=== PATIENT | male | born 1970 | race Caucasian/White ===

== ENCOUNTER 2016-04-10 18:38 | Emergency (ER) | payer SELFPAY ==
--- NOTE | 2016-04-10 19:06 | ER Document Report ---
ED Medical Screen (RME) - General Stated Complaint: BACK PAIN Mode of Arrival: Ambulatory Information source: Patient Notes: Patient complains of generalized body aches for the past several months. Patient's encouraged him to come today. Patient complains of numbness to left third and fourth fingers off and on. Patient reports lower abdominal burning. Patient does report nausea but denies any vomiting. hx: Epilepsy, [place] I have greeted and performed a rapid initial assessment of this patient. A comprehensive ED assessment and evaluation of the patient, analysis of test results and completion of the medical decision making process will be conducted by additional ED providers. TRAVEL OUTSIDE OF THE [place] IN LAST 30 DAYS: No - Related Data Allergies/Adverse Reactions: Penicillins Allergy (Verified 11/23/15 21:17) Past Medical History - Past Medical History Cardiac Medical History: Reports: Hx Heart Attack Neurological Medical History: Reports: Hx Seizures Past Surgical History: Reports: Hx Appendectomy, Hx Orthopedic Surgery - right knee Physical Exam - Vital signs Vitals: Temp Pulse Resp BP Pulse Ox 98.2 F 79 20 126/79 H 96 04/10/16 18:45 04/10/16 18:45 04/10/16 18:45 04/10/16 18:45 04/10/16 18:45 - General General appearance: Appears well, Alert In distress: None Course - Vital Signs Vital signs: Temp Pulse Resp BP Pulse Ox 98.2 F 79 20 126/79 H 96 04/10/16 18:45 04/10/16 18:45 04/10/16 18:45 04/10/16 18:45 04/10/16 18:45
[2016-04-10 20:44] LABS: ABSOLUTE BASOPHILS # (AUTO) 0.1 10^3/uL (0.0-0.2); ABSOLUTE EOSINOPHILS # (AUTO) 0.1 10^3/uL (0.0-0.6); ABSOLUTE LYMPHOCYTES (AUTO) 2.8 10^3/uL (0.5-4.7); ABSOLUTE MONOCYTES (AUTO) 0.6 10^3/uL (0.1-1.4); ABSOLUTE NEUT (AUTO) 5.9 10^3/uL (1.7-8.2); BASOPHILS % (AUTO) 0.5 % (0-2); EOSINOPHILS % (AUTO) 1.1 % (0-6); HEMOGLOBIN 14.8 g/dL (13.5-17.0); HGB HCT DIFFERENCE -0.6; LYMPHOCYTES % (AUTO) 29.7 % (13-45); MEAN CORPUSCULAR HEMOGLOBIN 29.6 pg (27.0-33.4); MEAN CORPUSCULAR HGB CONC 32.9 g/dL (32.0-36.0); MEAN CORPUSCULAR VOLUME 90 fl (80-97); MONOCYTES % (AUTO) 6.7 % (3-13); RED CELL DISTRIBUTION WIDTH 13.7 % (11.5-14.0); WHITE BLOOD COUNT 9.5 10^3/uL (4.0-10.5)
[2016-04-10 21:04] LABS: ALANINE AMINOTRANSFERASE 33 U/L (21-72); ALBUMIN 3.8 g/dL (3.5-5.0); ALKALINE PHOSPHATASE 95 U/L (38-126); ANION GAP 10 (5-19); ASPARTATE AMINO TRANSFERASE 27 U/L (17-59); BILIRUBIN,TOTAL 0.3 mg/dL (0.2-1.3); BLOOD UREA NITROGEN 16 mg/dL (7-20); CALCIUM 9.4 mg/dL (8.4-10.2); CARBON DIOXIDE 29 mmol/L (22-30); CHLORIDE 103 mmol/L (98-107); CREATININE RESULT 1.03 mg/dL (0.52-1.25); GLUCOSE 89 mg/dL (75-110); LIPASE 233.6 U/L (23-300); POTASSIUM 3.9 mmol/L (3.6-5.0); SODIUM 141.7 mmol/L (137-145); TOTAL PROTEIN 6.1 g/dL (6.3-8.2)
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
[2016-04-10 22:08] LABS: APPEARANCE,URINE CLEAR; BILIRUBIN,URINE NEGATIVE (NEGATIVE); GLUCOSE, URINE NEGATIVE (NEGATIVE); KETONES,URINE TRACE mg/dL (NEGATIVE); LEUKOCYTE ESTERASE,URINE NEGATIVE (NEGATIVE); NITRITE,URINE NEGATIVE (NEGATIVE); PROTEIN,URINE NEGATIVE (NEGATIVE); UROBILINOGEN,URINE NEGATIVE mg/dL (<2.0)
[2016-04-10 22:22] LABS: URINE BARBITURATES SCREEN NEGATIVE; URINE METHADONE SCREEN NEGATIVE; URINE PHENCYCLIDINE SCREEN NEGATIVE
[2016-04-10 22:41] VITALS: BP 132/84
== END 2016-04-10 22:43 | disposition home or self-care (01) ==
LOC: ER 18:38
DX: M54.5 Low back pain (principal); R10.9 Unspecified abdominal pain; M54.9 Dorsalgia, unspecified; G40.909 Epilepsy, unspecified, not intractable, without status epilepticus; I25.2 Old myocardial infarction; F17.210 Nicotine dependence, cigarettes, uncomplicated
CPT/HCPCS: 36415; 80053; 80307; 81001; 83690; 85025; 99284

== ENCOUNTER 2016-06-09 12:54 | Emergency (ER) | payer SELFPAY ==
[2016-06-09] MEDS ORDERED: NORMAL SALINE 1000 ML 1,000 ML IV PRN (13:02)
--- NOTE | 2016-06-09 13:02 | ER Document Report ---
ED Medical Screen (RME) - General Stated Complaint: STOMACH PAIN Notes: Patient is a 46-year-old male who presents emergency Department complaining of abdominal pain. Patient states that he was treated for pancreatitis back in January was discharged home still states that he has burning abdominal pain that is constant, states today that his pain is worse than normal. Admits to nausea. Without emesis. Admits to constipation. Last bowel movement was 4 days ago, loose Also admits to headache, back pain I have greeted and performed a rapid initial assessment of this patient. A comprehensive ED assessment and evaluation of the patient, analysis of test results and completion of the medical decision making process will be conducted by additional ED providers. TRAVEL OUTSIDE OF THE [place] IN LAST 30 DAYS: No - Related Data Allergies/Adverse Reactions: Penicillins Allergy (Verified 06/09/16 12:59) Past Medical History - Past Medical History Cardiac Medical History: Reports: Hx Heart Attack Neurological Medical History: Reports: Hx Seizures Renal/ Medical History: Denies: Hx Peritoneal Dialysis Past Surgical History: Reports: Hx Appendectomy, Hx Orthopedic Surgery - right knee Physical Exam - Vital signs Vitals: Temp Pulse Resp BP Pulse Ox 99.8 F 80 16 121/76 97 06/09/16 12:58 06/09/16 12:58 06/09/16 12:58 06/09/16 12:58 06/09/16 12:58 Course - Vital Signs Vital signs: Temp Pulse Resp BP Pulse Ox 99.8 F 80 16 121/76 97 06/09/16 12:58 06/09/16 12:58 06/09/16 12:58 06/09/16 12:58 06/09/16 12:58
[2016-06-09 13:25] LABS: ABSOLUTE EOSINOPHILS # (AUTO) 0.1 10^3/uL (0.0-0.6); ABSOLUTE LYMPHOCYTES (AUTO) 0.9 10^3/uL (0.5-4.7); ABSOLUTE MONOCYTES (AUTO) 0.5 10^3/uL (0.1-1.4); ABSOLUTE NEUT (AUTO) 8.2 10^3/uL (1.7-8.2); BASOPHILS % (AUTO) 0.4 % (0-2); EOSINOPHILS % (AUTO) 0.5 % (0-6); HEMATOCRIT 48.8 % (37.9-51.0); HEMOGLOBIN 16.8 g/dL (13.5-17.0); HGB HCT DIFFERENCE 1.6; LYMPHOCYTES % (AUTO) 9.4 % (13-45); MEAN CORPUSCULAR HEMOGLOBIN 30.6 pg (27.0-33.4); MEAN CORPUSCULAR HGB CONC 34.5 g/dL (32.0-36.0); MEAN CORPUSCULAR VOLUME 89 fl (80-97); MONOCYTES % (AUTO) 5.1 % (3-13); RED BLOOD COUNT 5.48 10^6/uL (4.35-5.55); RED CELL DISTRIBUTION WIDTH 13.6 % (11.5-14.0); SEGMENTED NEUTROPHILS % (AUTO) 84.6 % (42-78); WHITE BLOOD COUNT 9.7 10^3/uL (4.0-10.5)
[2016-06-09 13:34] LABS: APPEARANCE,URINE CLEAR; BILIRUBIN,URINE NEGATIVE (NEGATIVE); GLUCOSE, URINE NEGATIVE (NEGATIVE); KETONES,URINE NEGATIVE (NEGATIVE); LEUKOCYTE ESTERASE,URINE NEGATIVE (NEGATIVE); NITRITE,URINE NEGATIVE (NEGATIVE); PROTEIN,URINE NEGATIVE (NEGATIVE); UROBILINOGEN,URINE NEGATIVE mg/dL (<2.0)
[2016-06-09 13:45] LABS: ALANINE AMINOTRANSFERASE 39 U/L (21-72); ALBUMIN 3.7 g/dL (3.5-5.0); ALKALINE PHOSPHATASE 87 U/L (38-126); ANION GAP 6 (5-19); ASPARTATE AMINO TRANSFERASE 25 U/L (17-59); BILIRUBIN,TOTAL 0.5 mg/dL (0.2-1.3); BLOOD UREA NITROGEN 10 mg/dL (7-20); CALCIUM 9.6 mg/dL (8.4-10.2); CARBON DIOXIDE 28 mmol/L (22-30); CHLORIDE 105 mmol/L (98-107); CREATININE RESULT 0.89 mg/dL (0.52-1.25); GLUCOSE 95 mg/dL (75-110); LIPASE 172.3 U/L (23-300); POTASSIUM 4.7 mmol/L (3.6-5.0); SODIUM 138.8 mmol/L (137-145)
--- NOTE | 2016-06-09 13:51 | ER Document Report ---
ED General - General Chief Complaint: Abdominal Pain Stated Complaint: STOMACH PAIN Mode of Arrival: Ambulatory Information source: Patient Notes: Patient presents to the emergency department with complaints of stomach on fire , right-sided back feels like someone is sticking it with needles. He reports these symptoms for the past 6 months. Patient reports history of pancreatitis. Patient denies other symptoms such as vomiting diarrhea reports last bowel movement was 3-4 days ago reports some nausea. Also reports recent hot and cold flashes for the past 2 days. Patient did not receive his flu vaccine. Patient reports TRINIDAD but has not taken any type of pain reliever. TRAVEL OUTSIDE OF THE [place] IN LAST 30 DAYS: No - HPI Onset: Other - chronic pain- 6 months Onset/Duration: Persistent Quality of pain: Achy Severity: Severe Pain Level: 5 Associated symptoms: Nonproductive cough, Nausea Exacerbated by: Denies Relieved by: Denies Similar symptoms previously: Yes Recently seen / treated by doctor: No - Related Data Allergies/Adverse Reactions: Penicillins Allergy (Verified 06/09/16 12:59) Past Medical History - General Information source: Patient - Social History Smoking Status: Current Every Day Smoker Cigarette use (# per day): Yes Chew tobacco use (# tins/day): No Frequency of alcohol use: Rare Drug Abuse: None Occupation: none Lives with: Family Family History: Reviewed & Not Pertinent Patient has suicidal ideation: No Patient has homicidal ideation: No - Past Medical History Cardiac Medical History: Reports: Hx Heart Attack Neurological Medical History: Reports: Hx Seizures Renal/ Medical History: Denies: Hx Peritoneal Dialysis GI Medical History: Reports: Other - Pancreatitis Psychiatric Medical History: Reports: Hx Bipolar Disorder, Hx Post Traumatic Stress Disorder Past Surgical History: Reports: Hx Appendectomy, Hx Orthopedic Surgery - right knee Review of Systems - Review of Systems Notes: Review HPI for review of systems., All other systems negative Physical Exam - Vital signs Vitals: Temp Pulse Resp BP Pulse Ox 99.8 F 80 16 121/76 97 06/09/16 12:58 06/09/16 12:58 06/09/16 12:58 06/09/16 12:58 06/09/16 12:58 - Notes Notes: PHYSICAL EXAMINATION: GENERAL: Nontoxic looking, looks older than stated age HEAD: Atraumatic, normocephalic. EYES: Pupils equal round extraocular movements intact, sclera anicteric, conjunctiva are normal. ENT: TM wnl, nares patent, oropharynx clear without exudates. Moist mucous membranes. NECK: Normal range of motion, supple without lymphadenopathy LUNGS: CTAB and equal. No wheezes rales or rhonchi. HEART: Regular rate and rhythm without murmurs ABDOMEN: Soft, no tenderness. No guarding, no rebound , No pain on palpation, reports feels like abd/back are on fire EXTREMITIES: Normal range of motion, no pitting edema. No cyanosis. NEUROLOGICAL: Cranial nerves grossly intact. Normal sensory/motor exams. PSYCH: Normal mood, normal affect. SKIN: Warm, Dry, normal turgor, no rashes or lesions noted Course - Re-evaluation Re-evalutation: 06/09/16 14:51 No leukocytosis, no s/s dehydration, no elevated lipase. pt does not c/o abdominal pain with palpation, pt looks non toxic. Instructed on importance of fluids, motrin for TRINIDAD, fu with the [facility]. He verbalized understanding. - Vital Signs Vital signs: Temp Pulse Resp BP Pulse Ox 99.8 F 80 16 121/76 97 06/09/16 12:58 06/09/16 12:58 06/09/16 12:58 06/09/16 12:58 06/09/16 12:58 - Laboratory Result Diagrams: 06/09/16 13:05 06/09/16 13:05 Laboratory results interpreted by me: 06/09/16 06/09/16 13:05 13:05 Seg Neutrophils % 84.6 H Lymphocytes % 9.4 L Total Protein 6.0 L Discharge - Discharge Clinical Impression: chronic body pain, Flu-like symptoms Condition: Stable Disposition: HOME, SELF-CARE Instructions: Chronic Pain Control ([facility]), [facility], Use of Over- The-Counter Ibuprofen ([facility]), Antinausea Medication ([facility]), Intravenous (IV) Fluids ([facility]) Additional Instructions: *You have been evaluated for chronic body pain, flu like symptoms *Increase fluid intake as discussed *Take medication as prescribed for nausea *Monitor your temperature, take Tylenol or Motrin as indicated *Follow up with the [facility] within one week *Return to ED for worsening condition, changes, needs
[2016-06-09] MEDS ORDERED: IBUPROFEN 800 MG TABLET PO ONE (14:39)
[2016-06-09] MEDS ORDERED: ONDANSETRON ODT 4 MG TAB (6 TAB/DSPK) PO PRN (14:39)
[2016-06-09 15:47] VITALS: BP 141/86
== END 2016-06-09 15:47 | disposition home or self-care (01) ==
LOC: ER 12:54
DX: R52 Pain, unspecified (principal); G89.29 Other chronic pain; R10.9 Unspecified abdominal pain; R11.10 Vomiting, unspecified; R11.2 Nausea with vomiting, unspecified; F17.210 Nicotine dependence, cigarettes, uncomplicated
CPT/HCPCS: 99284; 96360; 36415; 83690; 85025; 80053; 81001; J7030

== ENCOUNTER 2016-09-01 09:17 | Emergency (ER) | payer SELFPAY ==
[2016-09-01] MEDS ORDERED: KETOROLAC TROMETHAMINE 60 MG/2 ML SDV IM ONE (09:40)
[2016-09-01] MEDS ORDERED: DEXAMETHASONE SOD PHOS INJ 10 MG/1 ML VIAL IM ONE (09:40)
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
[2016-09-01 10:19] VITALS: BP 116/77
== END 2016-09-01 10:26 | disposition home or self-care (01) ==
LOC: ER 09:17
DX: M54.42 Lumbago with sciatica, left side (principal); F17.210 Nicotine dependence, cigarettes, uncomplicated; Z88.0 Allergy status to penicillin; Z71.6 Tobacco abuse counseling; Z87.81 Personal history of (healed) traumatic fracture
CPT/HCPCS: 99283; 96372; J1885; J1100

== ENCOUNTER 2019-05-02 23:09 | Emergency (ER) | payer OTHER ==
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
--- NOTE | 2019-05-03 01:58 | RADIOLOGY REPORT (SQ) ---
CLINICAL HISTORY: injury COMPARISON: None. TECHNIQUE: CT HEAD WITHOUT IV CONTRAST on 05/03/2019 12:36 AM [facility] [employer] [facility] This exam was performed according to our departmental dose-optimization program, which includes automated exposure control, adjustment of the mA and/or kV according to patient size and/or use of iterative reconstruction technique. FINDINGS: There is no acute hemorrhage, mass effect or midline shift. Chao-white differentiation is preserved. There is no hydrocephalus. There is no significant volume loss for age. The calvarium is intact. Orbits and globes are unremarkable. The paranasal sinuses are clear. Mastoid air cells are clear. IMPRESSION: No acute intracranial findings.
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
--- NOTE | 2019-05-03 02:01 | RADIOLOGY REPORT (SQ) ---
CLINICAL HISTORY: injury COMPARISON: None. 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 FINDINGS: There is no acute fracture. Alignment is anatomic. There is mild narrowing of the C5-6 disc. Vertebral body heights are preserved. There is upper lung paraseptal emphysema. IMPRESSION: No acute fracture or subluxation.
[2019-05-03 03:46] VITALS: BP 113/79
== END 2019-05-03 03:39 ==
LOC: ER 23:09
DX: S09.90XA Unspecified injury of head, initial encounter (principal); S09.93XA Unspecified injury of face, initial encounter; Y04.0XXA Assault by unarmed brawl or fight, initial encounter; Z87.891 Personal history of nicotine dependence; Z88.0 Allergy status to penicillin; Z88.8 Allergy status to other drugs, medicaments and biological substances
CPT/HCPCS: 70450; 70486; 72125; 99284